=== PATIENT | female | born 1960 | race Caucasian/White ===

== ENCOUNTER 2018-07-03 08:55 | Day surgery (SDC) | payer OTHER ==
[2018-07-03] MEDS ORDERED: LIDOCAINE 1% (MPF) 10 ML INJ (09:44)
[2018-07-03] MEDS ORDERED: NA BICARB 50 MEQ/50 ML VIAL (09:45)
[2018-07-03] MEDS ORDERED: EPINEPHrine 1 MG INJ (09:45)
[2018-07-03] MEDS ORDERED: LIDOCAINE 2% (SDV) 5 ML INJ ×2 (09:46→10:36)
[2018-07-03] MEDS ORDERED: TIMOLOL MALEATE/PF 0.5% OCCUDOSE (0.3 ML) (09:49)
[2018-07-03] MEDS: CYCLOPENTOLATE 2% 2 ML OPH OPER (10:01)
[2018-07-03] MEDS: NEPAFENAC 0.1% 3 ML OPH OPER (10:01)
[2018-07-03] MEDS: MOXIFLOXACIN 0.5% 3 ML OPH OPER (10:01)
[2018-07-03] MEDS: PHENYLephrine 10% 5 ML OPH OPER (10:01)
[2018-07-03] MEDS: PHENYLephrine 10% 5 ML OPH LEFT EYE (10:20)
[2018-07-03] MEDS: TIMOLOL 0.5% 5 ML OPH LEFT EYE (10:20)
[2018-07-03] MEDS: LIDOCAINE 1% (MPF) 10 ML INJ INJ (10:20)
[2018-07-03] MEDS ORDERED: DIPHENHYDRAMINE 50 MG INJ IV (10:30)
[2018-07-03] MEDS ORDERED: ALBUTEROL 0.083% (NEB) 2.5 MG/3 ML AMP HHN (10:30)
[2018-07-03] MEDS ORDERED: ONDANSETRON 4 MG INJ IV (10:30)
[2018-07-03] MEDS ORDERED: LABETALOL HCL 20MG INJ IV (10:30)
[2018-07-03] MEDS ORDERED: ACETAMINOPHEN 500 MG TAB PO (10:30)
[2018-07-03] MEDS ORDERED: hydrALAzine 20 MG INJ IV (10:30)
[2018-07-03] MEDS ORDERED: OXYCODONE/ACETAMINOPHEN (5/325) TAB PO (10:30)
[2018-07-03] MEDS ORDERED: ACETAMINOPHEN 325 MG TAB PO (10:30)
[2018-07-03] MEDS ORDERED: PROPOFOL 20 ML (10:36)
[2018-07-03] MEDS: CARBACHOL 0.01% 1.5 ML OPH INJ LEFT EYE (11:04)
[2018-07-03] MEDS: FENTAnyl 50 MCG/ML VIAL IV ×3 (11:29→11:53)
[2018-07-03] MEDS ORDERED: CARBACHOL 0.01% 1.5 ML OPH INJ (13:18)
== END 2018-07-03 12:45 | disposition home or self-care (01) ==
LOC: SDS 08:55
DX: H25.12 Age-related nuclear cataract, left eye (principal); I10 Essential (primary) hypertension; E78.5 Hyperlipidemia, unspecified; E11.9 Type 2 diabetes mellitus without complications; E66.9 Obesity, unspecified
CPT/HCPCS: 66984; 82962